=== PATIENT | male | born 1975 | race Caucasian/White ===

== ENCOUNTER 2022-08-12 16:21 | Emergency (ER) | payer OTHER ==
[2022-08-12 16:33] VITALS: BP 138/97; PULSE 77; RESP 18; TEMP 97.7; BMI 28.3
== END 2022-08-12 19:08 | disposition home or self-care (01) ==
LOC: JER 16:21 → JERFT 16:21
DX: K64.9 Unspecified hemorrhoids (principal)
CPT/HCPCS: 99283-25

== ENCOUNTER 2024-09-07 11:31 | Emergency (ER) | payer OTHER ==
[2024-09-07 11:41] VITALS: BP 121/72; PULSE 75; RESP 18; TEMP 97.7; BMI 28.3
[2024-09-07] MEDS ORDERED: DIPHTH,PERTUSS(ACELL),TET 0.5 ML DISP.SYRIN IM ONE (13:32)
[2024-09-07] MEDS: DIPHTH,PERTUSS(ACELL),TET 0.5 ML DISP.SYRIN IM ONE (13:35)
[2024-09-07] MEDS ORDERED: BACITRACIN ZINC 15 GM TUBE TOPICAL OINTMENT ONE (17:39)
[2024-09-07] MEDS: BACITRACIN ZINC 15 GM TUBE TOPICAL OINTMENT TP ONE (17:41)
== END 2024-09-07 18:15 | disposition home or self-care (01) ==
LOC: JER 11:31 → JERFT 11:31
PROC: 3E0234Z Introduction of Serum, Toxoid and Vaccine into Muscle, Percutaneous Approach (ICD-10-PCS; principal; 2024-09-07)
DX: S61.442A Puncture wound with foreign body of left hand, initial encounter (principal); W45.8XXA Other foreign body or object entering through skin, initial encounter; Z23 Encounter for immunization
CPT/HCPCS: 73130-TC-LT-FY; 90715; 99284-25